=== PATIENT | female | born 1970 | race Caucasian/White ===

== ENCOUNTER → 2017-01-30 | Outpatient (CLI) | payer OTHER ==
--- NOTE | 2017-01-30 16:44 | CT ---
EXAMINATION TYPE: CT hip RT wo con DATE OF EXAM: 01/30/2017 COMPARISON: NONE HISTORY: 46-year-old female complains of right hip pain and a clicking in right hip when moving leg. TECHNIQUE: Contiguous axial scanning of the right hip without IV contrast. Coronal and sagittal recon structions performed. CT DLP: 883 mGycm Automated exposure control for dose reduction was used. FINDINGS: Suggestion of a 3.9 cm cystic lesion within the right adnexa; this can be further evaluated with pelv ic ultrasound. Slight superior acetabular retroversion is suggested. There is mild marginal spurring and prominent o sseous excrescence along the anterior femoral head neck junction. Overall hip joint space appears emeka ntained. No acute fracture, subluxation, or dislocation. IMPRESSION: 1. NO ACUTE OSSEOUS ABNORMAL MOBILITY SEEN. 2. SOME BONY CHANGES MAY REFLECT UNDERLYING MIXED TYPE FEMORAL ACETABULAR IMPINGEMENT SYNDROME. IF CO NCERN FOR ACETABULAR LABRAL INJURY, CONSIDER ORTHOPEDIC REFERRAL. 3. THERE IS MILD DEGENERATIVE SPURRING WITH OVERALL PRESERVED JOINT SPACE. 4. A 3.9 CM RIGHT ADNEXAL CYSTIC LESION PROBABLY REPRESENTS A DOMINANT FOLLICLE OR FUNCTIONAL CYST. U LTRASOUND COULD FURTHER EVALUATE IF CLINICALLY INDICATED.
--- NOTE | 2017-01-31 09:23 | XR ---
EXAMINATION TYPE: XR lumbar spine 2 or 3V DATE OF EXAM: 01/30/2017 CLINICAL HISTORY: pain TECHNIQUE: Three views of the lumbar spine are submitted. COMPARISON: 11/18/2011 FINDINGS: There are 5 lumbar type vertebral bodies identified. The lumbar spine shows satisfactory alignment w ithout evidence of acute fracture or dislocation. Vertebral body heights are within normal limits. Oyot-[id number] degenerative disc space narrowing and spondylosis at all levels. Facet joint arthrop athy noted. The overlying soft tissue appears unremarkable. IMPRESSION: No acute fracture or dislocation is seen in the lumbar spine. ICD 10 NO FRACTURE, INITIAL EVALUATION
== END | disposition home or self-care (01) ==
LOC: RADCTMAIN 15:51
PROVIDERS: ATTEND Family Medicine
DX: M25.851 Other specified joint disorders, right hip (principal); M51.37 Other intervertebral disc degeneration, lumbosacral region
CPT/HCPCS: 72100

== ENCOUNTER → 2017-02-15 | Outpatient (CLI) | payer OTHER ==
--- NOTE | 2017-02-15 11:20 | US ---
EXAMINATION TYPE: US pelvic complete DATE OF EXAM: 02/15/2017 COMPARISON: NONE CLINICAL HISTORY: N83.8 Adnexal Cyst. Pain in right hip lead to CT of hip that resulted in cystic are a noted in rt adnexa, 3 c-sections and ablation TECHNIQUE: TA, no TV Date of LMP: ablation 15 years ago, spotting every 3-6 months EXAM MEASUREMENTS: Uterus: 10.0 x 5.7 x 4.7 cm Endometrial Stripe: 0.8 cm Right Ovary: 3.6 x 2.9 x 2.9 cm Left Ovary: 2.4 x 2.1 x 1.8 cm *patient felt very full 1. Uterus: Anteverted wnl 2. Endometrium: wnl 3. Right Ovary: 3.0cm simple appearing cyst as noted on prior CT. 4. Left Ovary: wnl 5. Bilateral Adnexa: wnl 6. Posterior cul-de-sac: wnl IMPRESSION: 1. No endometrial thickening. Unremarkable left ovary. 2. 3 cm simple appearing right ovarian cyst.
== END | disposition home or self-care (01) ==
LOC: RADUSWWP 09:51
PROVIDERS: ATTEND Family Medicine
DX: N83.201 Unspecified ovarian cyst, right side (principal)
CPT/HCPCS: 76856

== ENCOUNTER → 2017-07-10 | Outpatient (CLI) | payer OTHER ==
--- NOTE | 2017-07-10 16:13 | US ---
EXAMINATION TYPE: US carotid duplex BILAT DATE OF EXAM: 07/10/2017 COMPARISON: MR 2017 CLINICAL HISTORY: H53.9 Visual Disturbance, I10 Hypertension. EXAM MEASUREMENTS: RIGHT: Peak Systolic Velocity (PSV) cm/sec ----- Right CCA: 117.4 ----- Right ICA: 92.8 ----- Right ECA: 81.1 ICA/CCA ratio: 0.8 RIGHT: End Diastole cm/sec ----- Right CCA: 33.3 ----- Right ICA: 26.7 ----- Right ECA: 9.6 LEFT: Peak Systolic Velocity (PSV) cm/sec ----- Left CCA: 87.6 ----- Left ICA: 101.2 ----- Left ECA: 80.0 ICA/CCA ratio: 1.2 LEFT: End Diastole cm/sec ----- Left CCA: 29.3 ----- Left ICA: 36.5 ----- Left ECA: 11.7 VERTEBRALS (direction of flow): Right Vertebral: Antegrade Left Vertebral: Antegrade Rhythm: Normal tortuous ICA bilaterally Grayscale, color Doppler, spectral Doppler imaging performed of the carotid arteries. Waveform analys is does not show significant stenosis of the proximal internal carotid arteries bilaterally. IMPRESSION: No hemodynamic significant stenosis of the proximal internal carotid arteries bilaterall y by Doppler criteria, an indirect measurement of carotid stenosis.
--- NOTE | 2017-07-11 13:41 | ECHOF ---
Referral Reason:H53.9 Visual Distrubance, I10 Hypertension MEASUREMENTS -------- HEIGHT: 160.0 cm WEIGHT: 108.9 kg BP: 114/53 IVSd: 0.8 cm (0.6 - 1.1) LVIDd: 3.8 cm (3.9 - 5.3) LVPWd: 1.2 cm (0.6 - 1.1) IVSs: 1.4 cm LVIDs: 1.9 cm LVPWs: 1.4 cm LAESV Index (A-L): 16.86 ml/m Ao Diam: 2.7 cm (2.0 - 3.7) AV Cusp: 2.0 cm (1.5 - 2.6) LA Diam: 3.3 cm (2.7 - 3.8) MV EXCURSION: 13.883 mm (> 18.000) MV EF SLOPE: 129 mm/s (70 - 150) EPSS: 0.3 cm MV E Demetrius: 0.98 m/s MV DecT: 195 ms MV A Demetrius: 0.39 m/s MV E/A Ratio: 2.48 RAP: 5.00 mmHg RVSP: 19.26 mmHg FINDINGS -------- Sinus rhythm. This was a technically good study. The left ventricular size is normal. There is borderline concentric left ventricular hypertrophy. Overall left ventricular systolic function is normal with, an EF between 55 - 60 %. The right ventricle is normal in size and function. The left atrium is normal in size. The right atrium is normal in size. The aortic valve is trileaflet, and appears structurally normal. No aortic stenosis or regurgitation. There is trace mitral regurgitation. Trace tricuspid regurgitation present. The right ventricular systolic pressure, as measured by Dopp ler, is 19.26mmHg. Pulmonic valve appears structurally normal. The aortic root size is normal. Normal inferior vena cava with normal inspiratory collapse consistent with estimated right atrial pre ssure of 5 mmHg. The pericardium is normal. CONCLUSIONS -------- 1. Sinus rhythm. 2. This was a technically good study. 3. The left ventricular size is normal. 4. There is borderline concentric left ventricular hypertrophy. 5. Overall left ventricular systolic function is normal with, an EF between 55 - 60 %. 6. The right ventricle is normal in size and function. 7. The left atrium is normal in size. 8. The right atrium is normal in size. 9. The aortic valve is trileaflet, and appears structurally normal. No aortic stenosis or regurgitati on. 10. There is trace mitral regurgitation. 11. Trace tricuspid regurgitation present. 12. The right ventricular systolic pressure, as measured by Doppler, is 19.26mmHg. 13. Pulmonic valve appears structurally normal. 14. The aortic root size is normal. 15. Normal inferior vena cava with normal inspiratory collapse consistent with estimated right atrial pressure of 5 mmHg. 16. The pericardium is normal. VISUAL INSPECTOR: Julia Mesa RDCS
== END | disposition home or self-care (01) ==
LOC: RADECHMAIN 13:28
PROVIDERS: ATTEND Family Medicine
DX: I08.1 Rheumatic disorders of both mitral and tricuspid valves (principal); I10 Essential (primary) hypertension; H53.9 Unspecified visual disturbance
CPT/HCPCS: 93306; 93880

== ENCOUNTER → 2017-09-13 | Outpatient (CLI) | payer OTHER ==
--- NOTE | 2017-09-13 15:37 | XR ---
EXAMINATION TYPE: XR ankle complete RT DATE OF EXAM: 09/13/2017 CLINICAL HISTORY: Sprain injury with pain TECHNIQUE: Frontal, lateral and oblique images of the right ankle are obtained. COMPARISON: None. FINDINGS: There is no acute fracture/dislocation evident in the right ankle. The ankle mortise appe ars within normal limits. There is spurring from the medial and lateral malleolus. There is well cor ticated 2 mm fragment medial malleolus anterior aspect could reflect old avulsion type fracture. Ther e are small to moderate size inferior calcaneal spur. The overlying soft tissue appears unremarkable. IMPRESSION: There is no acute fracture or dislocation in the right ankle.
== END | disposition home or self-care (01) ==
LOC: RADXRMAIN 15:03
PROVIDERS: ATTEND Family Medicine
DX: S93.401A Sprain of unspecified ligament of right ankle, initial encounter (principal)

== ENCOUNTER → 2018-01-21 | Outpatient (CLI) | payer OTHER ==
[2018-01-21 15:41] VITALS: BP 113/67; PULSE 75; TEMP 98.9; BMI 43.2
--- NOTE | 2018-01-21 17:37 | P.HPOB ---
History of Present Illness H&P Date: 01/21/18 Chief Complaint: The patient is here for her routine gynecologic exam and mammogram. This is a 47-year-old G3 PIII with LMP of 1997. She is status post endometrial ablation in 1997 and has been amenorrheic since then. It has been about 2 years since her last pelvic exam. She had a CT scan of her hip on 01/30/2017 which showed a 3.9 cm right adnexal mass. She had a follow-up pelvic ultrasound on 02/15/2017 which showed a right 3.0 cm simple ovarian cyst. She was advised to repeat the ultrasound in 2 months, but this was not done. She does have intermittent pelvic and hip discomfort. She states most days she does not have pelvic pain, but when she does she describes it as achy. The pain does not seem to be associated with any particular activity. She does have occasional hot flashes that are not very severe. After the endometrial ablation she has had intermittent light spotting, but she has not had any spotting or bleeding from the vagina for about one year. She is otherwise without gynecologic complaints. She is currently not having any pelvic pain today. Review of Systems She states her weight can fluctuate by plus or -10 pounds. She denies cardiac problems. 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 G.I.: occasional heartburn, gastritis and gastric reflux. Past Medical History Past Medical History: Asthma, Fibromyalgia, Hypertension, Osteoarthritis (OA) Additional Past Medical History / Comment(s): Psoriatic arthritis, neuropathy, tachycardia. 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 She is status post endometrial ablation for Menorrhagia. 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 - Past Family History Mother Family Medical History: Cancer (Colon and breast cancer), Diabetes Mellitus Additional Family Medical History / Comment(s): Maternal grandmother had diabetes and colon cancer. Father Family Medical History: No Reported History Medications and Allergies Home Medications Medication Instructions Recorded Confirmed Type Eszopiclone [Lunesta] 3 mg PO HS 08/11/15 01/21/18 History HYDROcodone/APAP 5-325MG [Jones 1 tab PO Q4HR PRN 08/11/15 01/21/18 History 5-325] Meclizine [Antivert] 12.5 mg PO DAILY 08/11/15 01/21/18 History Olmesartan/Hydrochlorothiazide 1 tab PO DAILY 08/11/15 01/21/18 History [Benicar Hct 20-12.5 mg Tablet] Albuterol Inhaler [Ventolin Hfa INHALATION PRN 01/21/18 History Inhaler] Celecoxib [CeleBREX] PO DAILY 01/21/18 History Cholecalciferol (Vitamin D3) PO DAILY PRN 01/21/18 History [Vitamin D3] Citalopram Hydrobromide [CeleXA] PO DAILY 01/21/18 History Montelukast Chew [Singulair] PO DAILY 01/21/18 History Olmesartan [Benicar] PO BID 01/21/18 History Pantoprazole Sodium [Protonix] PO DAILY 01/21/18 History tiZANidine HCL [Zanaflex] PO HS 01/21/18 History Allergies Allergy/AdvReac Type Severity Reaction Status Date / Time cortisone Allergy Rash/Hives Verified 01/21/18 15:38 Penicillins Allergy Rash/Hives Verified 01/21/18 15:38 Exam Vital Signs Temp Pulse BP 01/21/18 15:38 98.9 F 75 113/67 Intake and Output 01/21/18 01/21/18 01/21/18 06:59 14:59 22:59 Other: Weight 110.677 kg Height 5'3", BMI 43.2. This is a well-developed well-nourished obese, white female who is alert and oriented times 3 in no acute distress. HEENT: Within normal limits. NECK: Supple without mass or thyromegaly. CHEST AND LUNGS: Clear to auscultation. HEART: Regular rate and rhythm. BREASTS: Are without mass or discharge. AXILLARY EXAM: Negative for adenopathy. BACK: Negative for CVA tenderness. ABDOMEN: Soft, obese, nontender, without palpable masses. PELVIC EXAM: Normal external genitalia without significant atrophy. Cervix and vagina appear normal without significant atrophy. There is no unusual discharge. There is no evidence of prolapse. The uterus is midposition, nongravid size and nontender. There are no palpable adnexal masses or tenderness. Bimanual examination is somewhat limited secondary to her size. RECTAL EXAM: rectovaginal exam is negative for mass or tenderness and is negative for occult blood. EXTREMITIES: Nontender. IMPRESSION: 1. 47-year-old perimenopausal female who is amenorrhea following endometrial ablation. 2. Intermittent mild right-sided pelvic pains without any significant physical findings at this time. 3. History of 3 cm right to simple ovarian cyst by CT scan and pelvic ultrasound one year ago. This may or may not be related to the right pelvic pains. PLAN: 1. Pap smear was performed. 2. Self breast awareness was discussed with the patient. 3. Screening mammogram will be done today. 4. Pelvic ultrasound will be scheduled to further evaluate her intermittent pains and to reevaluate the right ovarian cyst. 5. She will also return in one year and PRN.
--- NOTE | 2018-01-23 12:50 | MM ---
Reason for exam: screening (asymptomatic). Last mammogram was performed 1 year and 11 months ago. History: Family history of premenopausal breast cancer in mother. Physical Findings: A clinical breast exam by your physician is recommended on an annual basis and results should be correlated with mammographic findings. MG 3D Screening Mammo W/Cad Bilateral CC and MLO view(s) were taken. Prior study comparison: February 27, 2016, bilateral MG 3d screening mammo w/cad. November 02, 2003, left breast diagnostic mammogram. There are scattered fibroglandular densities. No significant changes when compared with prior studies. ASSESSMENT: Negative, BI-RAD 1 RECOMMENDATION: Routine screening mammogram of both breasts in 1 year.
== END | disposition home or self-care (01) ==
LOC: WWCWWP 15:12
PROVIDERS: ATTEND Obstetrics & Gynecology
DX: Z12.31 Encounter for screening mammogram for malignant neoplasm of breast (principal)
CPT/HCPCS: 77063; 77067

== ENCOUNTER → 2018-02-11 | Day surgery (SDC) | payer OTHER ==
[2018-02-10 09:58] VITALS: BMI 43.7
[~2018-02-11] MED LIST: LACTATED RINGERS 1,000 ML IV SCH; LIDOCAINE 1% 20 ML VIAL (10MG/ML) FOR IV START INTRADERMA ONE; PROPOFOL 10 MG/ML 20 ML VIAL IV ONE
[2018-02-11 10:40] VITALS: RESP 16; TEMP 99.1
--- NOTE | 2018-02-11 11:39 | P.PCN ---
Date of Procedure: 02/11/18 Procedure(s) Performed: Procedure: Esophagogastroduodenoscopy and biopsy. Preoperative diagnosis: Chronic reflux and I explained persistent cough. Postoperative diagnosis: 1. Small sliding hiatal hernia with no obvious esophagitis or complicated reflux disease. 2. Mild antral gastritis. 3. Multiple biopsies obtained from the duodenum, antrum and esophagus. Preparation and sedation: Was provided by anesthesia. Brief clinical history: The patient is a 47-year-old female who is scheduled for this evaluation because of unexplained chronic cough. The patient has history of reflux which improves with acid suppressive therapy, however, this does not disease her cough. This evaluation is to assess for complicated reflux disease or other pathology. Procedure: With the patient on her left lateral decubitus position and after informed consent and adequate sedation, I passed the Olympus-GIF 160 video upper endoscope through the cricopharyngeus down the esophagus. GE junction was around 35 cm from the incisors and there was a small sliding hiatal hernia with no obvious esophagitis or complicated reflux disease. The endoscope was then passed into the stomach which was insufflated with air and inspected in detail including the retroflex view in the cardia. There was some mottling and erythema in the antrum but no ulcers or erosions. Pyloric channel, duodenal bulb, post bulbar area and descending duodenum appeared within normal limits. Because of her symptoms, I obtained biopsies from the duodenum, antrum and esophagus then the endoscope was withdrawn. The patient tolerated the procedure well. Plan: The patient was reassured. Will await biopsy results and then make further plans based on her course and biopsy results. We will keep you updated on her progress.
[2018-02-11 11:58] VITALS: BP 110/69; PULSE 53
== END | disposition home or self-care (01) ==
LOC: ORWHC2ENDO 09:27
DX: K29.50 Unspecified chronic gastritis without bleeding (principal); K44.9 Diaphragmatic hernia without obstruction or gangrene; K21.0 Gastro-esophageal reflux disease with esophagitis; K29.80 Duodenitis without bleeding; L40.50 Arthropathic psoriasis, unspecified; M19.90 Unspecified osteoarthritis, unspecified site; M79.7 Fibromyalgia; I10 Essential (primary) hypertension; J45.909 Unspecified asthma, uncomplicated; Z79.891 Long term (current) use of opiate analgesic; Z79.1 Long term (current) use of non-steroidal anti-inflammatories (NSAID); Z88.0 Allergy status to penicillin; Z88.8 Allergy status to other drugs, medicaments and biological substances; Z79.899 Other long term (current) drug therapy
CPT/HCPCS: 81025; 88305; 43239; J2704

== ENCOUNTER → 2018-02-25 | Outpatient (CLI) | payer OTHER ==
--- NOTE | 2018-02-25 08:55 | US ---
EXAMINATION TYPE: US pelvic complete DATE OF EXAM: 02/25/2018 COMPARISON: Prior pelvic ultrasound February 15, 2017. CLINICAL HISTORY: N83.209 ovarian cyst. TECHNIQUE: Transabdominal (TA) Date of LMP: Patient states that she had ablation 20 years prior, no real menses since. EXAM MEASUREMENTS: Uterus: 9.1 x 4.8 x 4.6 cm Endometrial Stripe: 0.6 cm Right Ovary: 2.6 x 1.5 x 1.6 cm Left Ovary: 3.0 x 2.2 x 1.7 cm Morbidly obese patient. 1. Uterus: Anteverted wnl 2. Endometrium: wnl 3. Right Ovary: wnl 4. Left Ovary: wnl 5. Bilateral Adnexa: wnl 6. Posterior cul-de-sac: wnl IMPRESSION: Normal-size ovaries without suspicious solid or cystic ovarian or adnexal lesion identifi ed on today's study.
--- NOTE | 2018-02-25 09:45 | XR ---
EXAMINATION TYPE: XR chest 2V DATE OF EXAM: 02/25/2018 COMPARISON: Prior chest x-ray dated 07/03/2011 HISTORY: Rheumatoid arthritis, chronic pain TECHNIQUE: Frontal and lateral views of the chest are obtained. FINDINGS: There is no focal air space opacity, pleural effusion, or pneumothorax seen. The cardiac silhouette size is within normal limits. The osseous structures are intact. Arthropathy noted at th e acromioclavicular joints. IMPRESSION: No acute cardiopulmonary process.
--- NOTE | 2018-02-25 10:58 | XR ---
EXAMINATION TYPE: XR Hip Bilateral and AP pelvis DATE OF EXAM: 02/25/2018 COMPARISON: CT right hip dated 01/30/2017 HISTORY: Chronic pain TECHNIQUE: A single AP view of the pelvis is obtained. Two views of the bilateral hip are obtained. FINDINGS: Findings described in CT report of the right hip are not as well delineated. Marginal spurr ing is present bilaterally. Joint space maintained. Bone mineralization and alignment is normal. IMPRESSION: Osteoarthritis within the hips. See report of CT the right hip 01/30/2017, correlate for p ossible femoral acetabular impingement.
--- NOTE | 2018-02-25 11:01 | XR ---
Lumbar spine HISTORY: Chronic pain 3 views of the lumbar spine correlated to prior exam 01/30/2017 There is no significant interval change. Lumbar vertebral bodies show stable height, alignment, and b one mineralization. Minimal retrolisthesis grade 1 L3-4. There is multilevel spondylosis. Sclerosis p resent in the posterior elements lumbar spine. Loss of disc height present at the intervertebral leve ls the upper lumbar spine. Vascular calcifications noted in the aortoiliac distribution. IMPRESSION: Degenerative disc disease and facet arthropathy.
--- NOTE | 2018-02-26 07:18 | US ---
EXAMINATION TYPE: US abdomen complete DATE OF EXAM: 02/25/2018 COMPARISON: Outside images dated 01/28/2018 CLINICAL HISTORY: K76.9 Liver disease N83.209 ovarian cyst. EXAM MEASUREMENTS: Liver Length: 17.7 cm CBD: 0.3 cm Spleen: 11.1 cm Right Kidney: 10.2 x 5.1 x 4.7 cm Left Kidney: 10.9 x 4.5 x 5.[address] chest. Pancreas: wnl Liver: Within the posterior right hepatic lobe there is a hyperechoic avascular 2.3 x 1.7 x 1.6 cm s olitary lesion. The remainder of the hepatic parenchyma is homogeneous. Gallbladder: wnl Evidence for sonographic Kramer's sign: No CBD: wnl Spleen: No splenomegaly. Right Kidney: No hydronephrosis or nephrolithiasis. Left Kidney: No hydronephrosis or nephrolithiasis. Upper IVC: wnl Abd Aorta: wnl The intrahepatic portion of the IVC and proximal abdominal aorta are within normal limits. There is no evidence of cholelithiasis. Common bile duct is unremarkable. The visualized portions of the de jesus creas are homogenous. The spleen is unremarkable. Kidneys are symmetric and free of hydronephrosis. No renal lesions are seen. IMPRESSION: Solitary hyperechoic right hepatic lesion corresponding to the outside finding on the exam of 01/29/20 18. In a patient with no underlying hepatocellular disease this most commonly represents a hemangioma , however other considerations such as adenoma, focal nodular hyperplasia, and less likely hepatocell ular carcinoma are possibilities. This finding could be confirmed with three-phase enhanced CT.
== END | disposition home or self-care (01) ==
LOC: RADUSWWP 06:55
PROVIDERS: ATTEND Family Medicine
DX: K76.9 Liver disease, unspecified (principal); M51.36 Other intervertebral disc degeneration, lumbar region; M46.96 Unspecified inflammatory spondylopathy, lumbar region; M16.0 Bilateral primary osteoarthritis of hip; N83.209 Unspecified ovarian cyst, unspecified side; R07.89 Other chest pain
CPT/HCPCS: 71046; 72100; 73521; 76700; 76856

== ENCOUNTER → 2018-03-17 | Outpatient (CLI) | payer OTHER ==
--- NOTE | 2018-03-19 07:19 | CT ---
EXAMINATION TYPE: Dual phase liver CT DATE OF EXAM: 03/17/2018 COMPARISON: Correlation ultrasound 02/25/2018 HISTORY: 47 year-old female liver lesion found on prior ultrasound. TECHNIQUE: Contiguous axial scanning of the abdomen before and following administration of 100 ml Iso charity 300 IV contrast. Initial noncontrast images were obtained followed by late arterial phase and por mechelle venous phase scans. Delayed images through the kidneys and coronal/sagittal reconstructions perfo rmed. CT DLP: 2272 mGycm Automated exposure control for dose reduction was used. FINDINGS: Heart normal size without pericardial effusion. Lung bases clear without pleural effusion. Liver measures 16.9 cm, upper limits of normal. No evidence for fatty infiltration. There is a 2.2 cm lesion within segment 6 of the inferior posterior right liver lobe. This demonstrat es peripheral nodular enhancement on the early phase with coalescing areas of nodular enhancement on portal venous phase. The enhancement follows the blood pool and on the delayed kidney images, the les ion is only subtly apparent. No other focal liver lesion. No biliary ductal dilatation. Portal venous system is patent. Cholecystectomy clips. Adrenal glands, right kidney, and pancreas within normal limits. Extrarenal pelvis on the right. 5 mm nonobstructive calculus mid to lower pole left kidney. Subtle subcentimeter hypodensity within the posterior spleen too small for accurate CT characterizati on of questionable clinical significance. No dilated small bowel, free fluid, or free air. No mesenteric or retroperitoneal lymphadenopathy see n in the upper abdomen. Moderate stool with left hemicolonic diverticulosis. The pelvis is not imaged . Mild to moderate atherosclerotic calcifications infrarenal abdominal aorta. Bones: No osseous destructive process. Degenerative disc disease particularly at T12-L1. IMPRESSION: 1. THE 2.2 CM ECHOGENIC LESION SEEN ON ULTRASOUND WITHIN SEGMENT 6 OF THE RIGHT LIVER LOBE SHOWS ENHA NCEMENT CHARACTERISTICS COMPATIBLE WITH A BENIGN HEMANGIOMA. NO SUSPICIOUS LESIONS. 2. 5 MM NONOBSTRUCTIVE LEFT RENAL CALCULUS AND LEFT-SIDED COLONIC DIVERTICULOSIS.
== END | disposition home or self-care (01) ==
LOC: RADCTMAIN 14:41
PROVIDERS: ATTEND Family Medicine
DX: K76.89 Other specified diseases of liver (principal); N20.0 Calculus of kidney; K57.30 Diverticulosis of large intestine without perforation or abscess without bleeding
CPT/HCPCS: 74160; Q9967

== ENCOUNTER → 2018-04-15 | Outpatient (CLI) | payer OTHER ==
--- NOTE | 2018-04-15 13:35 | XR ---
EXAMINATION TYPE: XR shoulder complete BILAT DATE OF EXAM: 04/15/2018 CLINICAL HISTORY: pain TECHNIQUE: Three views of the bilateral shoulders are obtained. COMPARISON: None FINDINGS: There is no acute fracture/dislocation evident. The acromioclavicular and glenohumeral liliane int spaces appear mildly narrowed. The visualized ribs are intact and unremarkable. IMPRESSION: 1. There is no acute fracture or dislocation. ICD 10 NO FRACTURE, INITIAL EVALUATION
--- NOTE | 2018-04-15 13:38 | XR ---
EXAMINATION TYPE: XR cervical spine comp DATE OF EXAM: 04/15/2018 CLINICAL HISTORY: pain COMPARISON: NONE TECHNIQUE: Frontal, lateral, oblique, swimmers, and open mouth view of the cervical spine are obtaine d. FINDINGS: The cervical spine is visualized in its entirety from C1 thru the top of T1 level. It is s atisfactory in alignment without evidence of acute fracture or dislocation. The pre-vertebral soft t issue appears within normal limits. Moderate degenerative disc space narrowing and spondylosis. The C 1-C2 articulation is unremarkable on the open mouth view. The oblique images are within normal limit s. IMPRESSION: No acute fracture or dislocation is seen in the cervical spine.ICD 10 NO FRACTURE, INITI AL EVALUATION
== END | disposition home or self-care (01) ==
LOC: RADXRMAIN 12:58
PROVIDERS: ATTEND Family Medicine
DX: L40.50 Arthropathic psoriasis, unspecified (principal)
CPT/HCPCS: 72050

== ENCOUNTER → 2018-07-23 | Outpatient (CLI) | payer OTHER ==
--- NOTE | 2018-07-23 16:33 | MR ---
EXAMINATION TYPE: MR lumbar spine wo con DATE OF EXAM: 07/23/2018 COMPARISON: 07/21/2015 HISTORY: Low back pain CONTRAST: 0 mL intravenous Gadavist. TECHNIQUE: Multiplanar, multisequence images of the lumbar spine were acquired. Images were obtained at 1.5 Tesl a magnet. FINDINGS: Cord terminates at the L1-L2 level. Minimal disc desiccation is present throughout the lumbar spine Disc levels: No significant disc bulge or disc herniation. No spinal canal stenosis. No foraminal s tenosis. IMPRESSION: 1. Unremarkable MRI lumbar spine. 2. Exam is stable from the comparison.
== END | disposition home or self-care (01) ==
LOC: RADMRIMAIN 13:50
PROVIDERS: ATTEND Family Medicine
DX: M54.5 Low back pain (principal)
CPT/HCPCS: 72148

== ENCOUNTER → 2018-09-22 | Outpatient (CLI) | payer OTHER ==
--- NOTE | 2018-09-22 13:25 | MR ---
EXAMINATION TYPE: MR shoulder RT wo con DATE OF EXAM: 09/22/2018 12:53 PM COMPARISON: NONE HISTORY: Right shoulder pain TECHNIQUE: Multiplanar multispin echo imaging of the right shoulder was performed. FINDINGS: Rotator cuff : There is thickening and heterogeneity of the supraspinatus tendon compatible chronic t endinopathy. Microclip undersurface tear is seen at the insertion site of the supraspinatus tendon. T iny microtear is seen within the substance of the supraspinatus tendon at the level of the critical z one. No evidence for full-thickness tear. Remaining constituents of the rotator cuff are intact. Bursa: No bursal effusion or thickening is seen. Musculature: There is no muscular tear, contusion, or atrophy. Acromioclavicular joint : Subacromial spurring resulting in impingement. Moderate AC joint arthropath y. Osseous structures : There are no fractures or regions of abnormal bone marrow signal intensity. Long biceps tendon : The biceps tendon is normally situated within the bicipital groove. No complete or partial biceps tendon tear is present. Glenohumeral Joint fluid : There is no glenohumeral joint effusion. Cartilage and Bone : No focal hyaline cartilage defects are noted. No Hill-Sachs, reverse Hill-Sachs, or bony Bankart lesions are seen. Labrum : There are no SLAP or soft tissue Bankart lesions. No paralabral cysts are seen. OTHER FINDINGS : none IMPRESSION: 1. Chronic tendinopathy supraspinatus tendon secondary to impingement. Small microtears as noted. No evidence for full-thickness tear.
== END | disposition home or self-care (01) ==
LOC: RADMRIMAIN 12:20
PROVIDERS: ATTEND Orthopaedic Surgery
DX: M75.101 Unspecified rotator cuff tear or rupture of right shoulder, not specified as traumatic (principal); M25.811 Other specified joint disorders, right shoulder; M75.81 Other shoulder lesions, right shoulder

== ENCOUNTER → 2018-09-24 | Outpatient (CLI) | payer OTHER ==
--- NOTE | 2018-09-24 22:22 | MR ---
MRI CERVICAL SPINE: CLINICAL HISTORY: Spondylosis of cervical region without myelopathy per order. TECHNIQUE: Multiplanar, multisequence imaging of the cervical spine is performed without IV contrast. COMPARISON: By MRI cervical spine July 29, 2015.. FINDINGS: Sagittal images of the cervical spine show the craniocervical junction to remain within nor mal limits. The cervical and upper thoracic spinal cord remains normal in course, caliber, and signa l. There is persistent grade 1 retrolisthesis of C5 on C6. The vertebral body and intravertebral dis k heights are normal. Posterior disc herniation C5-C6 and C6-C7 level are redemonstrated on sagittal images. The bone marrow signal intensity is within normal limits. Axial images show C2-C3, C3-C4, C4-C5 levels all to remain within normal limits. Axial images at C5-C6 levels with spondylolisthesis with broad-based disc protrusion that has right f oraminal component effacing anterior thecal sac and causing moderate to advanced right-sided neural f oraminal narrowing with some progression in right-sided neural foraminal narrowing noted since prior MRI. Axial images at C6-C7 level redemonstrate broad-based left precentral disc protrusion effacing anteri or thecal sac, bilateral neural foramina are felt to remain patent. Axial images at C7-T1 level are felt to remain within normal limits. IMPRESSION: Stable degenerative change C6-C7 level. Spondylolisthesis and degenerative change C5-C6 l evel with some interval progression.
--- NOTE | 2018-09-24 22:24 | MR ---
EXAMINATION TYPE: MR angio head wo con DATE OF EXAM: 09/24/2018 COMPARISON: MRA brain May 01, 2017 HISTORY: Paresthesias / Aneurysm TECHNIQUE: Time of flight images focusing on the [place] of [place] were performed without contrast.. 2-D and 3-D postprocessing imaging is performed and MRI scanner. FINDINGS: Dominant right vertebral artery is redemonstrated. Vertebral arteries are patent to basilar junction. There is patent left posterior communicating artery. There is a patent small caliber faint right posterior communicating artery redemonstrated. There is no significant focal stenosis or aneur ysmal change of the posterior circulation. Images of the anterior circulation show patent anterior communicating artery image 114. There is no s ignificant focal stenosis or aneurysmal change. IMPRESSION: No aneurysmal change at the level of [place] of [place]. No significant change from prior.
--- NOTE | 2018-09-24 22:26 | MR ---
EXAMINATION TYPE: MR brain wo/w con DATE OF EXAM: 09/24/2018 COMPARISON: Prior MRI brain May 01, 2017. HISTORY: Paresthesias / Aneurysm TECHNIQUE: Multiplanar, multisequence images of the brain and brainstem is performed without and with IV contras t, utilizing 12 mL intravenous Gadavist . FINDINGS: Diffusion weighted images demonstrate no evidence of a recent infarct or other diffusion ab normality. There is no worrisome extra-axial fluid collection. The ventricular system and cisternal spaces remain normal in size and appearance. The brain volume is age appropriate. Scattered foci of T2 hyperintensity are redemonstrated throughout the white matter bilaterally. Approximately 10 lesio ns of varying size and shape are present. Largest measures roughly 8 mm long axis posterior right fro ntal lobe subcortical level axial image 21 not significantly changed from prior. Midline structures demonstrate normal morphology. The craniocervical junction appears within normal limits. Post contrast images demonstrate no abnormal enhancement. The dural venous sinuses appear pa tent. The visualized sinuses are clear and the globes are intact. Nasal septum is slightly deviated t o left of midline similar to prior. IMPRESSION: [id number] nonspecific white matter changes redemonstrated. No enhancing lesions ar e seen. No significant change from prior MRI.
== END ==
LOC: RADMRIMAIN 21:09
PROVIDERS: ATTEND Psychiatry & Neurology Neurology
DX: M47.812 Spondylosis without myelopathy or radiculopathy, cervical region (principal)
CPT/HCPCS: 70544; 70553; 72141; A9585

== ENCOUNTER → 2019-01-09 | Outpatient (CLI) | payer OTHER ==
--- NOTE | 2019-01-09 15:40 | XR ---
KUB HISTORY: Left-sided renal calculus, gross hematuria Frontal KUB and 2 images correlated to prior abdomen CT 03/17/2018 There is a calcification superimposed over the lower pole the left kidney measuring approximately 6 m m. Surgical clips are present right upper quadrant. Retained fecal debris throughout the colon is pre sent, correlate for possible fecal stasis. Bone mineralization is normal. Possible phlebolith left he mipelvis. IMPRESSION: Left-sided nephrolithiasis.
== END | disposition home or self-care (01) ==
LOC: RADXRMAIN 14:46
PROVIDERS: ATTEND Urology
DX: N20.0 Calculus of kidney (principal)
CPT/HCPCS: 74018

== ENCOUNTER → 2019-02-11 | Outpatient (CLI) | payer OTHER ==
[2019-02-11 08:44] LABS: African American GFR (CKD) >90 (>60 ml/min/1.73 sqM); Blood Urea Nitrogen 11 mg/dL (7-17)
--- NOTE | 2019-02-11 10:04 | CT ---
EXAMINATION TYPE: CT abdomen pelvis wo con, CT abdomen w con DATE OF EXAM: 02/11/2019 HISTORY: hematuria (accession [id number]), : (accession [id number]) kidney stone and liver lesion per ord er. CT DLP: 1301.7 (accession [id number]), 2440.2 (accession [id number]) mGycm. Automated Exposure Control f or Dose Reduction was Utilized. TECHNIQUE: CT scan of the abdomen and pelvis is initially performed with oral but without IV contras t. CT of the abdomen is then performed with IV contrast. COMPARISON: CT abdomen March 17, 2018 FINDINGS: Within the limitations of a non-contrast study, the following observations are made. LUNG BASES: No significant abnormality is appreciated. LIVER/GB: Cholecystectomy clips are redemonstrated. Redemonstration of 2.4 cm rounded low dense lesio n posterior right hepatic lobe axial image 35 series 2. This lesion shows peripheral nodular enhancem ent on arterial phase imaging. Delayed phase images are suspected suboptimal as there is low density of the hepatic veins and IVC. Liver lesion is less well seen similar to prior. CT characteristics rhett ewhat unusual but still favor hemangioma. Suspect additional second subcentimeter hypodense lesion ri ght hepatic lobe axial image 13 not clearly seen on prior study. This lesion shows hyperdensity axial image 28 series 8, favor flash filling hemangioma. PANCREAS: No significant abnormality is seen. SPLEEN: No significant abnormality is seen. ADRENALS: No significant abnormality is seen. KIDNEYS: There is 4 to 5 mm calculus left kidney lower pole level axial image 54 redemonstrated. Stab le. Symmetric cortical medullary uptake and excretion without hydronephrosis seen bilaterally. BOWEL: Oral contrast does not reach colonic level making evaluation suboptimal. There is some promine nce of fecal material throughout the colon. Slight redundancy of sigmoid colon. GENITAL ORGANS: Anteverted uterus. There is 4.6 x 3.3 cm right pelvic cystic lesion favoring simple o varian cyst. This could be better evaluated and characterized with pelvic ultrasound if desired axial image 108 series 2 LYMPH NODES: No greater than 1cm abdominal or pelvic lymph nodes are appreciated. OSSEOUS STRUCTURES: Mild multilevel spurring in the spine OTHER: Mild calcified plaque of the abdominal aorta. IMPRESSION: 1. Stable 4 to 5 mm nonobstructing calculus lower pole of the left kidney. 2. Stable 2.4 cm posterior right hepatic lobe liver lesion with somewhat nonspecific dynamic postcont rast imaging characteristics but strongly favor benign hemangioma. Probable second additional subcent imeter flash filling hemangioma seen better on current study versus prior.
== END | disposition home or self-care (01) ==
LOC: RADCTMAIN 08:05
PROVIDERS: ATTEND Family Medicine
DX: D18.03 Hemangioma of intra-abdominal structures (principal); N20.0 Calculus of kidney
CPT/HCPCS: 82565; 84520; 74160; 74176; 36415; Q9967

== ENCOUNTER → 2019-02-19 | Outpatient (CLI) | payer OTHER ==
--- NOTE | 2019-02-20 13:59 | XR ---
EXAMINATION TYPE: XR hand complete bilateral DATE OF EXAM: 02/19/2019 COMPARISON: None HISTORY: M 25.549, and 79.672 TECHNIQUE: Bilateral hands 3 views each FINDINGS: No acute fractures or dislocations are evident. Soft tissues are normal. Joint spaces are p reserved. Follow-up exam can be performed 7-10 days from acute trauma for continued pain. IMPRESSION: 1. Normal bilateral hands.
--- NOTE | 2019-02-20 14:01 | XR ---
EXAMINATION TYPE: XR foot limited RT DATE OF EXAM: 02/19/2019 COMPARISON: None HISTORY: M 25.549, M 79.672 TECHNIQUE: 2 views right foot FINDINGS: Right foot is examined in 2 views. Joint spaces are preserved. Plantar calcaneal heel spurs present. No acute fractures or dislocations are evident. Follow up exams can be performed 7-10 days from acute trauma for continued pain. IMPRESSION: 1. Normal 2 view right foot
== END | disposition home or self-care (01) ==
LOC: RADXRMAIN 14:35
PROVIDERS: ATTEND Family Medicine
DX: M79.672 Pain in left foot (principal); M25.541 Pain in joints of right hand; M25.542 Pain in joints of left hand

== ENCOUNTER → 2019-12-31 | Outpatient (CLI) | payer OTHER ==
--- NOTE | 2020-01-04 18:23 | HM ---
HOLTER MONITOR REPORT 24-HOUR HOLTER MONITOR: DATE OF STUDY: 12/31/2019 INDICATION: Palpitations. The patient was monitored for 24 hours. The baseline rhythm appeared to be sinus with minimum heart rate of 45, maximum 118, and average heart rate of 65 beats per minute. Ventricular ectopic events presented in PVC only. Supraventricular ectopic events presented in PACs as well as couplets. No evidence of sinus pause or sinus arrest. The patient reported symptoms of dizziness and headache, and the symptoms were associated with normal sinus mechanism. CONCLUSION: 1. This is a 24-hour Holter monitor. 2. Sinus rhythm as a baseline mechanism. 3. Rare ventricular ectopic events. 4. Rare supraventricular ectopic events. 5. No evidence of significant sinus pause or sinus arrest. 6. The patient reported some symptoms of dizziness and headache, and the symptoms were associated with normal sinus mechanism. MMALEXY / SERAN: [id number] /
== END | disposition home or self-care (01) ==
LOC: RADECHMAIN 11:59
PROVIDERS: ATTEND Family Medicine
DX: R42 Dizziness and giddiness (principal)
CPT/HCPCS: 93225; 93226

== ENCOUNTER → 2020-04-08 | Outpatient (CLI) | payer OTHER ==
--- NOTE | 2020-04-08 18:21 | MR ---
EXAMINATION TYPE: MR cervical spine wo/w con DATE OF EXAM: 04/08/2020 COMPARISON: None HISTORY: Paresthesia of skin, cervical disc displacement, cervical disc herniation CONTRAST: Performed utilizing 11 mL intravenous Gadavist gadolinium contrast. TECHNIQUE: Multiplanar multiecho imaging on a 3.0 Kelly magnet is performed through the cervical spin e. FINDINGS: The craniovertebral junction is normal. Vertebral body alignment is normal. Spinal cord maintains normal signal through its visualized course. Susceptibility artifact C5-6 level from anteri or cervical fusion is evident. This has some limitation these levels. C7-T1: No focal disc herniation or significant disc bulge is evident. No spinal canal stenosis or n eural foraminal stenosis is present. C6-7: No focal disc herniation or significant disc bulge is evident. No spinal canal stenosis or cody ral foraminal stenosis is present. C5-6: No focal disc herniation or significant disc bulge is evident. No spinal canal stenosis or cody ral foraminal stenosis is present. C4-5: No focal disc herniation or significant disc bulge is evident. No spinal canal stenosis or cody ral foraminal stenosis is present. C3-4: No focal disc herniation or significant disc bulge is evident. No spinal canal stenosis or cody ral foraminal stenosis is present. C2-3: No focal disc herniation or significant disc bulge is evident. No spinal canal stenosis or cody ral foraminal stenosis is present. No suspicious enhancement is evident. IMPRESSIONS: 1. No suspicious thecal sac compression spinal canal stenosis or neural foraminal stenosis is evident . 2. Postsurgical changes from anterior cervical fusion C5-6.
== END | disposition home or self-care (01) ==
LOC: RADMRIMAIN 10:28
PROVIDERS: ATTEND Psychiatry & Neurology Neurology
DX: M50.20 Other cervical disc displacement, unspecified cervical region (principal); R20.2 Paresthesia of skin; Z98.1 Arthrodesis status; Z98.890 Other specified postprocedural states
CPT/HCPCS: 72156; A9585

== ENCOUNTER → 2020-04-12 | Outpatient (CLI) | payer OTHER | END | disposition home or self-care (01) | LOC: LABWHC1 15:54 | PROVIDERS: ATTEND Family Medicine | DX: Z03.818 Encounter for observation for suspected exposure to other biological agents ruled out (principal) | CPT/HCPCS: U0003; C9803 ==

== ENCOUNTER → 2020-04-18 | Outpatient (CLI) | payer OTHER ==
--- NOTE | 2020-04-19 08:39 | XR ---
EXAMINATION TYPE: XR chest 2V DATE OF EXAM: 04/18/2020 COMPARISON: Chest x-ray 02/25/2018 HISTORY: J 45.909, cough TECHNIQUE: Frontal and lateral views of the chest are obtained. FINDINGS: There is no focal air space opacity, pleural effusion, or pneumothorax seen. The cardiac silhouette size is within normal limits. The osseous structures are intact, postop change noted to the cervical spine.. IMPRESSION: No acute cardiopulmonary process.
== END | disposition home or self-care (01) ==
LOC: RAD 16:29
PROVIDERS: ATTEND Nurse Practitioner
DX: J45.909 Unspecified asthma, uncomplicated (principal)
CPT/HCPCS: 71046

== ENCOUNTER → 2020-07-13 | Outpatient (CLI) | payer OTHER | END | disposition home or self-care (01) | LOC: LABWHC1 11:34 | PROVIDERS: ATTEND Psychiatry & Neurology Neurology | DX: M54.2 Cervicalgia (principal); Z79.899 Other long term (current) drug therapy | CPT/HCPCS: 36415; 82306; 83735 ==

== ENCOUNTER → 2021-03-02 | Outpatient (CLI) | payer OTHER ==
[2021-03-03 10:08] LABS: Beef IgE <0.10 kU/L (<0.10); Beef IgE Class CLASS 0
[2021-03-03 10:09] LABS: Pine Nut, Pignoles IgE <0.10 kU/L (<0.10); Pine Nut, Pignoles IgE Class CLASS 0
[2021-03-03 10:34] LABS: Gliadin AB IgA, Deaminated NEGATIVE (NEGATIVE); Gliadin AB IgA, Unit 0.5 U/mL
== END | disposition home or self-care (01) ==
LOC: LABWHC1 10:21
PROVIDERS: ATTEND Allergy & Immunology
DX: K20.90 Esophagitis, unspecified without bleeding (principal); K52.9 Noninfective gastroenteritis and colitis, unspecified
CPT/HCPCS: 36415; 82784; 83516; 86001; 86003; 86606; 86609

== ENCOUNTER → 2021-05-03 | Outpatient (CLI) | payer OTHER | END | disposition home or self-care (01) | LOC: LABWHC1 13:38 | PROVIDERS: ATTEND Family Medicine | DX: Z20.822 Contact with and (suspected) exposure to COVID-19 (principal); R06.00 Dyspnea, unspecified | CPT/HCPCS: 87502; U0003; C9803 ==

== ENCOUNTER 2021-06-26 13:41 | Emergency (ER) | payer OTHER ==
[2021-06-26 13:48] VITALS: BP 158/81; PULSE 75; RESP 18; TEMP 98.7
--- NOTE | 2021-06-26 16:29 | ED ---
Fever HPI - General Chief Complaint: Fever Stated Complaint: covid+, wants infusion Time Seen by Provider: 06/26/21 16:05 Source: patient, RN notes reviewed Mode of arrival: ambulatory Limitations: no limitations - History of Present Illness Initial Comments: This is a pleasant 50-year-old female presents to emergency department stating that she tested positive for COVID-19 today. She states that yesterday she started getting some fatigue and a cough. Patient was sent by her primary care physician's office for the monoclonal antibody infusion. However, patient is up-to-date on immunizations. She received a Jarocho's Jarocho's vaccine last August and was boosted in the fall. According to the new and up-to-date criteria patient does not meet criteria for monoclonal antibody infusion. Patient is in no distress otherwise. No headache, fever up to 101F at home, no changes in vision or hearing, no sore throat or difficulty with speech, no neck pain, no chest pain or shortness of breath, no abdominal pain, no nausea or vomiting, no changes in urination or bowel movements, no numbness or tingling, no extremity pain, no skin rashes or lesions. Note that the patient states she does have an ALLERGY to corticosteroids. - Related Data Home Medications Medication Instructions Recorded Confirmed Eszopiclone [Lunesta] 3 mg PO HS 08/11/15 02/11/18 HYDROcodone/APAP 5-325MG [[place] 1 tab PO Q4HR PRN 08/11/15 02/11/18 5-325] Meclizine [Antivert] 12.5 mg PO DAILY PRN 08/11/15 02/11/18 Olmesartan/Hydrochlorothiazide 1 tab PO QAM 08/11/15 02/11/18 [Benicar Hct 20-12.5 mg Tablet] Albuterol Inhaler (Mhu) [Ventolin 2 puff INHALATION Q6H PRN 01/21/18 02/11/18 Hfa Inhaler (Mhu)] Cholecalciferol (Vitamin D3) 2,000 units PO DAILY PRN 01/21/18 02/11/18 [Vitamin D3] Citalopram Hydrobromide [CeleXA] 40 mg PO QAM 01/21/18 02/11/18 Montelukast Chew [Singulair] 10 mg PO HS 01/21/18 02/11/18 Pantoprazole Sodium [Protonix] 20 mg PO DAILY 01/21/18 02/11/18 tiZANidine HCL [Zanaflex] 2 mg PO HS 01/21/18 02/11/18 Meloxicam [Mobic] 15 mg PO DAILY 02/10/18 02/10/18 Ranitidine HCl [Zantac] 150 mg PO BID 02/10/18 02/11/18 Allergies Allergy/AdvReac Type Severity Reaction Status Date / Time cortisone Allergy Rash/Hives Verified 06/26/21 13:48 Penicillins Allergy Rash/Hives Verified 06/26/21 13:48 prednisone Allergy Rash/Hives Verified 06/26/21 13:49 Sulfa (Sulfonamide Allergy Nausea & Verified 06/26/21 13:49 Antibiotics) Vomiting Review of Systems ROS Statement: Those systems with pertinent positive or pertinent negative responses have been documented in the HPI. ROS Other: All systems not noted in ROS Statement are negative. Past Medical History Past Medical History: Asthma, Fibromyalgia, GERD/Reflux, Hypertension, Osteoarthritis (OA) Additional Past Medical History / Comment(s): Psoriatic arthritis, neuropathy, tachycardia. 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 History of Any Multi-Drug Resistant Organisms: None Reported Past Surgical History: Appendectomy, Section, Cholecystectomy, Tonsille ctomy, Tubal Ligation, Uterine Ablation Past Anesthesia/Blood Transfusion Reactions: No Reported Reaction Past Psychological History: Anxiety, Depression Smoking Status: Never smoker Past Alcohol Use History: None Reported Past Drug Use History: None Reported - Past Family History Mother Family Medical History: Cancer, Diabetes Mellitus Additional Family Medical History / Comment(s): Maternal grandmother had diabetes and colon cancer. Father Family Medical History: No Reported History General Exam - General Exam Comments Initial Comments: 50-year-old female in no significant distress. Vital signs stable other than a mildly elevated blood pressure. Limitations: no limitations General appearance: alert, in no apparent distress Head exam: Present: atraumatic, normocephalic, normal inspection Eye exam: Present: normal appearance, EOMI. Absent: scleral icterus, conjunctival injection, periorbital swelling ENT exam: Present: normal exam, mucous membranes moist Neck exam: Present: normal inspection. Absent: tenderness, meningismus, lymphadenopathy Respiratory exam: Present: normal lung sounds bilaterally. Absent: respiratory distress, wheezes, rales, rhonchi, stridor Cardiovascular Exam: Present: regular rate, normal rhythm, normal heart sounds. Absent: systolic murmur, diastolic murmur, rubs, gallop, clicks GI/Abdominal exam: Present: soft, normal bowel sounds. Absent: distended, tenderness, guarding, rebound, rigid Extremities exam: Present: normal inspection, full ROM, normal capillary refill. Absent: tenderness, pedal edema, joint swelling, calf tenderness Back exam: Present: normal inspection Neurological exam: Present: alert, oriented X3, CN II-XII intact Psychiatric exam: Present: normal affect, normal mood Skin exam: Present: warm, dry, intact, normal color. Absent: rash Course Vital Signs 06/26/21 13:44 Temperature 98.7 F Pulse Rate 75 Respiratory 18 Rate Blood Pressure 158/81 O2 Sat by Pulse 98 Oximetry Medical Decision Making - Medical Decision Making She presented to the emergency department for the monoclonal antibody infusion. Unfortunately the patient is up-to-date on immunizations and has no immunosuppression. Patient does not meet criteria for infusion based on the fact she is up-to-date on immunizations and received a booster. This patient was sent in by her primary care office. Patient was also walked into the ER. Did discuss this with the ED attending physician, Dr. Boston. The patient was quite upset. I did apologize thoroughly. Patient was told to return to the ER for any signs or symptoms worsen. Told to return immediately if any other problems arise. All questions answered. Treatment plan discussed. Patient in agreement Spoke to nichole from Dr. Mei's office. Notified her that the patient does not meet criteria for the monoclonal antibody effusion. Disposition Clinical Impression: COVID-19 Disposition: HOME SELF-CARE Condition: Stable Instructions (If sedation given, give patient instructions): Coronavirus Disease 2019 (COVID-19) Additional Instructions: SELF QUARANTINE DISCHARGE: As you are at risk for symptoms due to coronavirus, please stay home and stay away from others as much as possible. Please maintain social distance of 6 feet if possible. You should not return to work until at least 3 days (72 hours) have passed since recovery of symptoms. This defined as resolution of fever without the use of fever reducing medicines and improvement in respiratory symptoms (e.g,, cough, shortness of breath) Isolation can end at least 5 days after symptom onset and after fever ends for 24 hours (without the use of fever-reducing medication) and symptoms are improving, if these people can continue to properly wear a well-fitted mask around others for 5 more days after the 5-day isolation period. If you're still having symptoms at the end of 5 day period, isolate for an additional 5 days. More information about what to do if you are sick can be found on the CDC website at https://www.cdc.gov/coronavirus/2019-ncov/i l-twv-iyr-sick/cxnju-njhy-clte.html Expect the symptoms to last for 7-14 days from onset. Use acetaminophen (Tylenol) as needed for discomfort. You can take a maximum of 1 gram every 6 hours for discomfort, with your total dose in 24 hours not exceeding 4 grams. Be sure to maintain hydration. Drink continuous water and/or items high in vitamin C, such as orange juice and/or lemonade. Unless you have high blood pressure, you may consider Sudafed (which is [id number]) for nasal congestion. I would suggest that a short acting Sudafed rather than the 24 hour Sudafed. For a cough you may take Mucinex or Robitussin. Also consider the use of Vicks Vapor Rub or your chest when you sleep. Use a humidifier that is cleaned frequently, in the bedroom at night. For Nausea /Vomiting/Diarrhea associated with your Illness: o Small frequent sips of room temperature liquids. o Diet: [place] [employer] - If you are still experiencing discomfort and/or nausea please slowly advancing your diet using the BRAT Diet = bananas, rice, apples/apple sauce, toast. o With diarrhea avoid any dairy for 48 hours after symptoms resolved. o Continue with activity as tolerated. If your symptoms do get worse and you believe that the upper respiratory infection has developed into something else, such as pneumonia or severe dehydration, please return to the emergency department or follow-up with your primary care. But expect to be symptomatic for the days as indicated above Is patient prescribed a controlled substance at d/c from ED?: No Referrals: Elver Mei MD [Primary Care Provider] - 1-2 days Time of Disposition: 16:32
== END 2021-06-26 17:23 | disposition home or self-care (01) ==
LOC: EC 13:41
DX: U07.1 COVID-19 (principal); J45.909 Unspecified asthma, uncomplicated; M79.7 Fibromyalgia; K21.9 Gastro-esophageal reflux disease without esophagitis; I10 Essential (primary) hypertension; M19.90 Unspecified osteoarthritis, unspecified site; F41.9 Anxiety disorder, unspecified; F32.A Depression, unspecified; Z88.0 Allergy status to penicillin; Z88.2 Allergy status to sulfonamides; Z90.49 Acquired absence of other specified parts of digestive tract; Z98.51 Tubal ligation status
CPT/HCPCS: 99283

== ENCOUNTER → 2021-08-31 | Outpatient (CLI) | payer OTHER | END | disposition home or self-care (01) | LOC: LABWHC1 11:41 | PROVIDERS: ATTEND Psychiatry & Neurology Neurology | DX: M62.838 Other muscle spasm (principal); R20.2 Paresthesia of skin | CPT/HCPCS: 36415; 82306 ==

== ENCOUNTER → 2021-11-02 | Outpatient (CLI) | payer OTHER ==
--- NOTE | 2021-11-03 08:22 | CT ---
EXAMINATION TYPE: CT chest w con DATE OF EXAM: 11/02/2021 COMPARISON: Chest x-ray April 18, 2020 HISTORY: SOLITARY PULMONARY NODULE CT DLP: 537.3 mGycm. Automated Exposure Control for Dose Reduction was Utilized. TECHNIQUE: CT scan of the thorax is performed following with IV Contrast, patient injected with 100m l mL of Isovue 300. FINDINGS: LUNGS: The lungs are grossly clear, there is no concerning greater than 5 mm parenchymal mass or nodu le identified. There is no pleural effusion or pneumothorax seen. The tracheobronchial tree is pat ent. MEDIASTINUM: There are no greater than 1 cm hilar or mediastinal lymph nodes. No cardiomegaly or pe ricardial effusion is seen. OTHER: Cholecystectomy clips are present. Surgical change to the cervical spine is partially imaged. IMPRESSION: No suspicious pulmonary nodules or masses. Unremarkable study.
== END | disposition home or self-care (01) ==
LOC: RADCTMAIN 14:22
PROVIDERS: ATTEND Family Medicine
DX: R91.1 Solitary pulmonary nodule (principal); Z90.49 Acquired absence of other specified parts of digestive tract
CPT/HCPCS: 71260; Q9967

== ENCOUNTER → 2021-11-14 | Outpatient (CLI) | payer OTHER ==
--- NOTE | 2021-11-14 14:38 | ECHOS ---
STRESS ECHOCARDIOGRAM INDICATION: Chest pain. BASELINE HEART RATE: 61 BASELINE BLOOD PRESSURE: 119/49 MAXIMUM HEART RATE: 149 MAXIMUM BLOOD PRESSURE: 185/76 85% MPHR: 142 100% MPHR: 167 METS: 4.4 MAXIMUM STAGE REACHED: II TOTAL EXERCISE TIME: 3:59 RESULTS: Baseline EKG shows sinus rhythm, normal axis, normal intervals. Patient exercised on Luis protocol for a total of 4 minutes achieving 5 METS, 85% of predicted maximal heart rate, without chest pain. At peak exercise, there was 0.[address]-segment depression noted in the inferolateral leads. Baseline echo shows normal left ventricular size, wall motion and systolic function. Postexercise, there is normal hyperdynamic response of all segments of myocardium noted. CONCLUSIONS: 1. Limited exercise tolerance. 2. Negative stress test by EKG criteria. 3. Negative stress echo. LEVI / SERAN: [id number] /
== END | disposition home or self-care (01) ==
LOC: RADNMMAIN 09:59
PROVIDERS: ATTEND Family Medicine
DX: R07.89 Other chest pain (principal)
CPT/HCPCS: 93351

== ENCOUNTER → 2022-10-26 | Outpatient (CLI) | payer OTHER ==
--- NOTE | 2022-10-26 15:47 | XR ---
EXAMINATION TYPE: XR foot complete RT DATE OF EXAM: 10/26/2022 COMPARISON: NONE HISTORY: 52-year-old female with right foot pain TECHNIQUE: 3 views FINDINGS: There is some calcification or densities adjacent to the base of the fifth metatarsal. Smal l plantar heel spur. No acute fracture, subluxation, or dislocation. Some degenerative spurring at th e anterior aspect of the medial malleolus possibly relating to sequela of remote injury. IMPRESSION: 1. Either sequela of old avulsion injury at the base of the fifth metatarsal versus calcifications re lating to CPPD or gout. Clinically correlate. 2. Some degenerative spurring anterior aspect of the medial malleolus may reflect sequela of prior de ltoid ligament sprain. 3. Small plantar heel spur.
== END | disposition home or self-care (01) ==
LOC: RADXRMAIN 14:11
PROVIDERS: ATTEND Family Medicine
DX: M25.774 Osteophyte, right foot (principal); M77.8 Other enthesopathies, not elsewhere classified

== ENCOUNTER → 2023-03-25 | Outpatient (CLI) | payer OTHER ==
--- NOTE | 2023-03-25 22:51 | US ---
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 1.6 X 1.2 x 1.2 cm, lower mid, mixed cystic and solid, hypoechoic nodule, which is wider than ta ll, with ill-defined margins, without echogenic foci. Prior size: no previous ISTHMUS: # of nodules measured in the isthmus: 0 Bilateral neck scanned, no evidence of lymphadenopathy. IMPRESSION: 1 mildly suspicious nodule left lobe thyroid. Follow-up exam in one year is recommended. 2017 ACR TI-RADS LEVEL: TR-RADS 3 - Mildly Suspicious: Follow if > 1.5 cm, FNA if > 2.5 cm *Highest TI-RADS level nodule reported
--- NOTE | 2023-03-26 18:41 | MM ---
Reason for Exam: Screening (asymptomatic). Last mammogram was performed 5 year(s) and 2 month(s) ago. Patient History: Menarche at age 10. First Full-Term at age 18. Postmenopausal. Mother had breast cancer. Risk Values: Karissa 5 year model risk: 2.2%. NCI Lifetime model risk: 15.4%. Prior Study Comparison: 11/02/2003 Left Diagnostic Mammogram, [facility]. 02/27/2016 Bilateral Screening Mammogram, [facility]. 01/21/2018 Bilateral Screening Mammogram, [facility]. Tissue Density: There are scattered fibroglandular densities. Findings: Analyzed By CAD. Subareolar focal asymmetry in the right breast has become more defined and increased in size especially on the CC view. This may represent altered orientation of fibroglandular tissue but further evaluation is recommended. Otherwise, no significant change. Overall Assessment: Incomplete: need additional imaging evaluation, BI-RAD 0 Management: Special View Mammogram of the right breast. Diagnostic Breast Ultrasound of the right breast. Additional views to include spot 3-D CC, spot 3-D MLO, and 3-D lateral views. Targeted subareolar and periareolar right breast ultrasound. [facility] will attempt to contact patient to return for supplemental views and ultrasound if indicated. Electronically signed and approved by: Beba Corona M.D. Radiologist
== END | disposition home or self-care (01) ==
LOC: RADMAMWWP 15:16
PROVIDERS: ATTEND Family Medicine
DX: Z12.31 Encounter for screening mammogram for malignant neoplasm of breast (principal); E04.1 Nontoxic single thyroid nodule; Z78.0 Asymptomatic menopausal state; Z80.3 Family history of malignant neoplasm of breast
CPT/HCPCS: 76536; 77063; 77067

== ENCOUNTER → 2023-04-15 | Outpatient (CLI) | payer OTHER ==
--- NOTE | 2023-04-15 10:47 | MM ---
Reason for Exam: Additional evaluation requested from abnormal screening. Last screening mammogram was performed less than 1 month ago. Patient History: Menarche at age 10. First Full-Term at age 18. Postmenopausal. Mother had breast cancer. Risk Values: Karissa 5 year model risk: 2.2%. NCI Lifetime model risk: 15.4%. Prior Study Comparison: 02/27/2016 Bilateral Screening Mammogram, [facility]. 01/21/2018 Bilateral Screening Mammogram, [facility]. 03/25/2023 Bilateral MG 3D screening mammo w/cad, [facility]. Tissue Density: Right: There are scattered fibroglandular densities. Findings: Analyzed By CAD. Asymmetry in the right CCA retroareolar region is felt to represent fibroglandular tissue. Ultrasound imaging for confirmation. This is not significantly changed when measuring the same back to 2018. No new suspicious masses, calcifications or distortions.Asymmetry in the right CC retroareolar region is felt to represent fibroglandular tissue. This is not significantly changed when measuring the same back to 2018. Ultrasound imaging for confirmation will be performed. No additional new suspicious masses, calcifications or distortions. Overall Assessment: Incomplete: need additional imaging evaluation, BI-RAD 0 Management: Diagnostic Breast Ultrasound of the right breast. Results were given to the patient verbally at the time of exam. Patient should continue monthly self-breast exams. A clinical breast exam by your physician is recommended on an annual basis. This exam should not preclude additional follow-up of suspicious palpable abnormalities. Note on Karissa scores and lifetime risk: 1. A Karissa score greater than 3% is considered moderate risk. If this is the case, consider specialist referral to assess eligibility for a risk reducing agent. 2. If overall lifetime risk for the development of breast cancer is 20% or higher, the patient may qualify for future screening with alternating mammogram and breast MRI. Electronically signed and approved by: Justice Og DO
--- NOTE | 2023-04-15 11:26 | USB ---
Reason for Exam: Additional evaluation requested from abnormal screening. Patient History: Menarche at age 10. First Full-Term at age 18. Postmenopausal. Mother had breast cancer. Risk Values: Karissa 5 year model risk: 2.2%. NCI Lifetime model risk: 15.4%. Technique: Method: Targeted. Prior Study Comparison: 02/27/2016 Bilateral Screening Mammogram, [facility]. 01/21/2018 Bilateral Screening Mammogram, [facility]. 03/25/2023 Bilateral MG 3D screening mammo w/cad, [facility]. Findings: The periareolar of the right breast, the axilla of the right breast and the retroareolar of the right breast were scanned. Technique utilized:US breast workup limited RT Image; Ultrasound imaging of: Area of concern, retroareolar region and axilla. There is a hypoechoic/anechoic lesion at 7:00 in the periareolar region measuring 4 x 3 x 4 mm. There is posterior acoustic enhancement. Overall Assessment: Benign, BI-RAD 2 Management: Screening Mammogram of both breasts in 1 year. Given mammography findings are relatively stable back to 2018 examination ultrasound likely represented a complicated cyst. A clinical breast exam by your physician is recommended on an annual basis and results should be correlated with mammographic findings. This exam should not preclude additional follow-up of suspicious palpable abnormalities. Results were given to the patient verbally at the time of exam. Electronically signed and approved by: Justice Og DO
== END | disposition home or self-care (01) ==
LOC: RADMAMWWP 10:23
PROVIDERS: ATTEND Family Medicine
DX: R92.321 Mammographic fibroglandular density, right breast (principal); Z78.0 Asymptomatic menopausal state; Z80.3 Family history of malignant neoplasm of breast
CPT/HCPCS: 77061; 77065

== ENCOUNTER → 2023-09-16 | Outpatient (CLI) | payer OTHER ==
--- NOTE | 2023-09-16 14:09 | XR ---
EXAMINATION TYPE: XR hand complete LT DATE OF EXAM: 09/16/2023 COMPARISON: 02/19/2019 HISTORY: Pain TECHNIQUE: Three views are submitted. FINDINGS: The osseous structures are intact. The joint spaces are preserved and there is no acute fracture or dislocation. Mild first MCP and first carpal metacarpal joint arthropathy. There is a small exostosis off the base of the second metacarpal stable from prior exam. IMPRESSION: 1. Mild arthropathy. No erosive changes.
== END | disposition home or self-care (01) ==
LOC: RADXRMAIN 13:38
PROVIDERS: ATTEND Family Medicine
DX: M12.842 Other specific arthropathies, not elsewhere classified, left hand (principal)

== ENCOUNTER → 2023-11-06 | Outpatient (CLI) | payer OTHER ==
--- NOTE | 2023-11-06 21:12 | US ---
EXAMINATION TYPE: US carotid duplex BILAT DATE OF EXAM: 11/06/2023 COMPARISON: NONE CLINICAL INDICATION: Female, 53 years old with history of I65.29 OCCLUSION AND STENOSIS; stenosis TECHNIQUE: Carotid duplex ultrasound examination. Indirect Doppler criteria was utilized. FINDINGS: EXAM MEASUREMENTS: RIGHT: Peak Systolic Velocity (PSV) cm/sec ----- Right CCA: 121 ----- Right ICA: 182 ----- Right ECA: 76.9 ICA/CCA ratio: 1.5 RIGHT: End Diastole cm/sec ----- Right CCA: 20.5 ----- Right ICA: 26.4 ----- Right ECA: 1.1 LEFT: Peak Systolic Velocity (PSV) cm/sec ----- Left CCA: 117 ----- Left ICA: 148 ----- Left ECA: 80.3 ICA/CCA ratio: 1.3 LEFT: End Diastole cm/sec ----- Left CCA: 25.2 ----- Left ICA: 24.1 ----- Left ECA: 13.8 VERTEBRALS (direction of flow): Right Vertebral: Antegrade Left Vertebral: Antegrade Rhythm: Normal RESOURCE SPECIALIST NOTES: No significant stenosis seen Mildly elevated velocities within the bilateral ICA. No plaque or stenosis is identified. IMPRESSION: Elevated velocities within the bilateral ICA without identifiable plaque or significant stenosis. Thi s can be further evaluated with CTA neck as clinically indicated. Criteria for Assigning % of Stenosis / Diameter reduction (Estimation based on the indirect measurements of the internal carotid artery velocities (ICA PSV). 1. Normal (no stenosis)=ICA PSV < 125 cm/s: ratio < 2.0: ICA EDV<40 cm/s. 2. Less than 50% stenosis=ICA PSV < 125 cm/s: ratio < 2.0: ICA EDV<40 cm/s. 3. 50 to 69% stenosis=ICA PSV of 125 to 230 cm/s: ration 2.0 ? 4.0: ICA EDV 40-100 cm/s. 4. Greater than 70% stenosis to near occlusion= ICA PSV > 230 cm/s: ratio > 4.0: ICA EDV > 100 cm/s. 5. Near occlusion= ICA PSV velocities may be low or undetectable: variable ratio and ICA EDV. 6. Total occlusion=unable to detect flow.
== END | disposition home or self-care (01) ==
LOC: RADUSWWP 15:30
PROVIDERS: ATTEND Family Medicine
DX: I65.29 Occlusion and stenosis of unspecified carotid artery (principal)
CPT/HCPCS: 93880